=== PATIENT | female | born 1985 | race African-American/Black ===

== ENCOUNTER 2018-02-25 06:43 | Outpatient (CLI) | payer OTHER | END 2018-02-25 06:44 | disposition home or self-care (01) | LOC: BICULT 06:43 | PROVIDERS: ATTEND Family Medicine | DX: Z34.80 Encounter for supervision of other normal pregnancy, unspecified trimester (principal) | CPT/HCPCS: 76805 ==

== ENCOUNTER 2018-03-05 11:06 | Day surgery (SDC) | payer OTHER ==
[2018-03-05 11:52] VITALS: BMI 29.1
[2018-03-05] MEDS ORDERED: Acetaminophen 500 MG TAB PO SCH (12:45)
[2018-03-05 13:01] LABS: Bilirubin Negative (Negative); Blood, Urine Negative (Negative); Clarity CLEAR (Clear); Glucose, Urine (Dipstick) Negative (Negative); Leukocyte Negative (Negative); Nitrite Negative (Negative); Protein, Urine (Dipstick) Negative (Neg-Trace); Specific Gravity, Urine 1.013 (1.002-1.036)
[2018-03-05 13:03] LABS: Bacteria/HPF None Seen HPF (None Seen); Hyaline Casts/LPF 0-3 HYALINE CAST LPF (0-3 Hyaline); Pathc Cast-AUWi Flag 0.29 (0-2.49); RBC/HPF 0-3 HPF (0-3); WBC/HPF 0-3 HPF (0-3)
--- NOTE | 2018-03-05 16:49 | PRG ---
DATE OF SERVICE: 03/05/2018 PRIMARY OB: Dr. Abi Pack. CHIEF COMPLAINT: Pelvic pain. HISTORY OF PRESENT ILLNESS: The patient is a 33-year-old G7, P6 female with a history of 6 d eliveries as early as 31 weeks gestation, who is presenting to Labor and Delivery at 20 weeks gestati on with sharp pelvic pains that she feels bilaterally and beneath her umbilicus into her groin and he r vaginal area. The patient also says she feels pressure in her rectum. She reports that this pain has been worsening since several weeks ago when her boy had blood in her belly, but has become more i ntense in the last few days. The patient denies labor. She denies vaginal bleeding, leakage of flui d. She denies urinary urgency or frequency. She denies any falls or trauma. She denies any illness , chest pain, shortness of breath. She does report she has a mild headache. She denies nausea, vomi ting, denies diarrhea, constipation. She denies any new rashes. She reports she is having some pain down in her lower back near her tailbone. PAST MEDICAL HISTORY: The patient does have a history of seizures, but has been seizure free for 3 y ears and is off medication. PAST SURGICAL HISTORY: Negative. OBSTETRIC HISTORY: She has had 6 deliveries. SOCIAL HISTORY: Denies drug, alcohol or tobacco use. MEDICATIONS: vitamins. OB LABS: Unavailable. REVIEW OF SYSTEMS: Per HPI. PHYSICAL EXAMINATION: VITAL SIGNS: Blood pressure is 108/62, heart rate of 72, respiratory rate of 20, satting 99% on room air, temperature 99.2. GENERAL: The patient does appear to be uncomfortable. She is alert and oriented, cooperative and pl easant to interact with. HEENT: Normocephalic, atraumatic. LUNGS: Clear to auscultation bilaterally. HEART: Regular rate and rhythm. ABDOMEN: Gravid and soft. She does have tenderness with deviation of the uterus down in her groin r egion in her lower pelvis. EXTREMITIES: Nontender, nonedematous. PELVIC: Vulva is without masses, lesions or erythema. Vagina is moist. Cervix is visibly closed an d there does not appear to be any unusual discharge. On bimanual exam, cervix is closed. LABORATORY AND IMAGING: A bedside ultrasound performed showed a cervical length of 2.8, 2.7 and 2.5 cm. There is no funnelin g; however, there does potentially be some. Urinalysis was performed showing negative, protein negat michael, ketone negative nitrites, negative leukocyte esterase, negative red blood cells, negative white blood cells, negative bacteria. heart tracing showed heart tones in the 150s. Tocometer did not show any contractions. ASSESSMENT AND PLAN: The patient is a 33-year-old female with an intrauterine at 20 weeks who is experiencing musculoskeletal pain consistent with ligament pain in . The patient has no evidence of labor with a closed cervix. Cervical length within normal limits and physical findin gs consistent with ligament pain. Patient was given 1 gram of Tylenol here in the hospital. As the patient is driving herself home, has not been given anything stronger. The patient has been counsele d to take 2 Tylenol 3 times a day for the next several days. I have also counseled a warm bath, swim qasim pool or more moist heat to impacted areas may be beneficial for her. Of note, the patient has h ad some complications with initiating progesterone injections as indicated with her history. Dr. Nemo Pack and her staff are working to remedy the blockades or the obstacles and initiating this treat ment. If treatment does not appear to be available in the coming days to weeks, an alternate form of progesterone supplementation may be beneficial.
== END 2018-03-05 13:48 | disposition home or self-care (01) ==
LOC: L&D/OP 11:06
PROVIDERS: ATTEND Family Medicine
DX: O99.89 Other specified diseases and conditions complicating pregnancy, childbirth and the puerperium (principal); M79.1 Myalgia; Z79.899 Other long term (current) drug therapy; Z3A.20 20 weeks gestation of pregnancy
CPT/HCPCS: 76815; 81001; 99285

== ENCOUNTER 2018-04-02 22:02 | Day surgery (SDC) | payer OTHER ==
[2018-04-02 22:36] VITALS: BMI 28.5
[2018-04-02 22:37] VITALS: BP 112/67; TEMP 98.5
[2018-04-02] MEDS ORDERED: Ondansetron HCl/PF 4 MG/2 ML Vial IVP PRN (23:07)
[2018-04-02] MEDS ORDERED: Ondansetron HCl/PF 4 MG/2 ML Vial IVP SCH (23:15)
[2018-04-02] MEDS ORDERED: Promethazine HCl 25 MG/ML VIAL IM PRN (23:20)
[2018-04-02] MEDS: Lactated Ringer's 2,000 ML IV SCH (23:54)
[2018-04-03 00:11] LABS: Anion Gap 14 mmol/L (10-20); BUN (Urea Nitrogen) 7 mg/dL (7.0-18.7); Calc. Creatinine Clearance 147 mL/min (70-130); Calcium 8.8 mg/dL (7.8-10.44); Carbon Dioxide 17 mmol/L (22-29); Chloride 107 mmol/L (98-107); Estimated GFR-MDRD Greater than 90; Glucose 88 mg/dL (70-105); Potassium 4.1 mmol/L (3.5-5.1); Sodium 134 mmol/L (136-145)
[2018-04-03] MEDS: Lactated Ringer's 2,000 ML IV SCH (01:10)
[2018-04-03] MEDS: Lactated Ringer's 1,000 ML IV SCH ×2 (02:57→06:07)
[2018-04-03] MEDS ORDERED: Acetaminophen 500 MG TAB PO SCH ×2 (03:00→08:45)
--- NOTE | 2018-04-03 08:06 | PRG ---
DATE OF SERVICE: 04/02/2018 PRIMARY X RAY EQUIPMENT TESTER: Dr. Abi Pack CHIEF COMPLAINT: Nausea, vomiting. HISTORY OF PRESENT ILLNESS: The patient is a 33-year-old female with a history of 6 de liveries and an intrauterine at 24 weeks and 5 days who presents to Labor and Delivery with onset of nausea and vomiting yesterday and diarrhea. The patient reports that she has been unable t o keep anything down. Her last episode of diarrhea was 3:00 o'clock in the afternoon. The patient h as attempted to use Zofran and Diclegis at home without help. The patient cannot remember the last t liborio she urinated. The patient denies any sick contacts. She does report a history of nausea and vom iting at home, but that had been under control for a while. She denies uterine contractions, vaginal bleeding, leakage of fluid, headache, chest pain, shortness of breath, any new rashes. PAST MEDICAL HISTORY: History of seizures, but has been seizure free for 3 years now. PAST SURGICAL HISTORY: Negative. OBSTETRIC HISTORY: She has had 6 deliveries. SOCIAL HISTORY: Denies drug, alcohol or tobacco use. CURRENT MEDICATIONS: vitamins. OB LABS: Blood type is B positive, drug screen is negative. RPR is nonreactive in the first trimest er. GC chlamydia is negative in the first trimester. Hepatitis B surface antigen is negative or non reactive in the first trimester, HIV is nonreactive in the first trimester. She is rubella immune. REVIEW OF SYSTEMS: Per HPI. PHYSICAL EXAMINATION: VITAL SIGNS: Blood pressure 112/67, heart rate of 100-128, satting 97% on room air, temperature 98.5 . GENERAL: She appears to be somewhat lethargic, not feeling well. She did vomit prior to evaluation up on the floor. She is alert and oriented, cooperative and pleasant to interact with. HEENT: Normocephalic, atraumatic. LUNGS: Clear to auscultation bilaterally. HEART: Regular rate and rhythm. ABDOMEN: Gravid and soft. EXTREMITIES: Nontender, nonedematous. GENITOURINARY: exam has been deferred. heart tracing baseline noted to be in the 160s. LABORATORY: BMP: Sodium is 134, potassium 4.1, chloride 107, BUN 7, creatinine 0.79, glucose 88, ca lcium 8.8. The patient has been given a total of 3-1/2 liters of IV fluids up to now. She has not had the urge to urinate as of yet. She has not vomited any longer since presentation to the hospital and given I V Zofran. PLAN: We will attempt to feed her breakfast this morning. When she is able to keep food down and ur inate the patient will be discharged to home. She will be given instructions to follow up with her [facility] in the next 1-2 days.
--- NOTE | 2018-04-03 10:43 | PDOC.EVN ---
Event Note - Event Note Event Note: DISCHARGE NOTE FROM L&D L&D Triage Discharge note Discharge date: 04/03/18 This patient was cleared for discharge earlier this AM (0800) by Dr Drummond who evaluated her this AM. I reviewed her history and eval this triage observation: The patient is a 33 yo Multiparous woman at 24 weeks with possible gastroenteritis. The team was awaiting spontaneous void prior to discharge as a sign of volume repletion. There was no evidence of PTL. Patient has voided and discharge was placed as an order per first MD recommendation. She will follow up with her MD which is Dr Abi Azul. Symptomatically, better. DX: 1. Multiparous patient 2. Nausea and vomiting in 3. 24 week gestation
== END 2018-04-03 10:30 | disposition home or self-care (01) ==
LOC: L&D/OP 22:02
PROVIDERS: ATTEND Family Medicine
DX: O99.89 Other specified diseases and conditions complicating pregnancy, childbirth and the puerperium (principal); R11.2 Nausea with vomiting, unspecified; R19.7 Diarrhea, unspecified; Z3A.24 24 weeks gestation of pregnancy; Z64.1 Problems related to multiparity
CPT/HCPCS: 80048; 93005; 96360; 96361; 96374; 96375; 99283; J2405

== ENCOUNTER 2018-04-24 13:52 | Outpatient (CLI) | payer OTHER ==
--- NOTE | 2018-04-24 14:59 | ULT ---
LIMITED OBSTETRICAL ULTRASOUND: Date: 04-24-18 Comparison: 02-25-18 History: 33-year-old female with vaginal spotting throughout . Study is requested t o evaluate the cervical length. Technique: Limited sonographic evaluation of the uterus/cervix provided. FINDINGS: The fetus is not assessed adequately on this examination. A sagittal image of the placenta demonstrat es no evidence for previa. The placenta is located anteriorly. The cervix measures approximately 3 - 3.1 cm in length and appears closed. IMPRESSION: Cervical length is 3 - 3.1 cm. The fetus is not assessed on this examination. POS: [facility]
== END 2018-04-24 13:53 | disposition home or self-care (01) ==
LOC: SCSULT 13:52
PROVIDERS: ATTEND Family Medicine
DX: N92.0 Excessive and frequent menstruation with regular cycle (principal); Z87.51 Personal history of pre-term labor
CPT/HCPCS: 76815

== ENCOUNTER 2018-07-04 02:48 | Day surgery (SDC) | payer OTHER ==
[2018-07-04 03:21] VITALS: BMI 29.8
[2018-07-04] MEDS ORDERED: Ondansetron ODT 8 MG TAB PO SCH (05:00)
[2018-07-04 05:14] LABS: Amphetamine Not Detected (NotDetected); Barbiturates Screen Not Detected (NotDetected); Benzodiazepine Screen Not Detected (NotDetected); Cocaine Metabolite Screen Not Detected (NotDetected); Medtox Control Line Valid? VALID (VALID); Medtox Reader # READER 1; Methadone Not Detected (NotDetected); Methamphetamine Not Detected (NotDetected); Opiate Screen Not Detected (NotDetected); Oxycodone Screen Not Detected (NotDetected); Phencyclidine (PCP) Not Detected (NotDetected); THC/Cannabinoid Screen Not Detected (NotDetected); Tricyclic Screen Not Detected (NotDetected)
[2018-07-04] MEDS ORDERED: Betamet Acet/Betamet Na Ph 30 MG/5 ML VIAL IM SCH (08:00)
[2018-07-04] MEDS ORDERED: Betamet Acet/Betamet Na Ph 30 MG/5 ML VIAL ONE (08:01)
--- NOTE | 2018-07-04 08:13 | HP ---
HISTORY OF PRESENT ILLNESS: The patient is a 33-year-old G8, P6 female with an intrauterine pregnanc y at 36 weeks and 3 days who has presented to Labor and Delivery with uterine contractions that began about 1:00 this morning. The patient reports that she feels about every 5-6 minutes and are painful . The patient denies fall, fever, illness, intercourse, leakage of fluid, vaginal bleeding, fever, h eadache, chest pain, shortness of breath. The patient has had nausea. Denies vomiting, denies rash. PAST MEDICAL HISTORY: History of seizures, but has been seizure free for 3 years. PAST SURGICAL HISTORY: Negative. OBSTETRIC HISTORY: Has had 6 deliveries. SOCIAL HISTORY: Denies drug, alcohol or tobacco use. CURRENT MEDICATIONS: vitamins. OB LABORATORY DATA: Blood type is B positive. Drug screen is negative. RPR is nonreactive in the f irst trimester. GC and chlamydia are negative in the first trimester. Hepatitis B surface antigen a re nonreactive in the first trimester. HIV is nonreactive in the first trimester and she is rubella immune. REVIEW OF SYSTEMS: Per HPI. PHYSICAL EXAMINATION: VITAL SIGNS: Blood pressure 102/57, heart rate of 83, respiratory rate of 16, temperature 98.4. GENERAL: She appears to be uncomfortable with the contractions. She is alert and oriented, cooperat michael and pleasant to interact with. HEENT: Head is normocephalic, atraumatic. LUNGS: Clear to auscultation bilaterally. HEART: Has a regular rate and rhythm. ABDOMEN: Gravid and nontender in between contractions. EXTREMITIES: Nontender, nonedematous. CERVICAL EXAM: 3, 50 and -2 station. Repeat exam at 1-1/2 hours and 4 hours later is unchanged at 3 , 50, -2 station. heart tracing performed for abdominal pain in . Baseline is noted to be in the 140s w ith moderate long-term variability, positive accelerations, no decelerations. Tocometer showing cont ractions irregular at every 2-8 minutes. Drug screen is negative. ASSESSMENT AND PLAN: The patient is a 33-year-old grand multiparous patient with an intrauterine pre gnancy at 36 weeks and 3 days with a history of delivery. The patient has had ample time to declare herself in active labor, but has not done so. She remains at 3, 50 and -2 station [facility] The patient does report that her contractions have improved some, though they are still present. Fetus has a category 1 tracing and a reactive NST. The patient will be discharged ho me and given her history of delivery and current contractions and cervical status, I did conf irm the patient she has not received steroids. Patient will be given a dose of betamethasone today a nd has been asked to follow up with her primary OB, Dr. Abi Pack today.
== END 2018-07-04 08:20 | disposition home health service (06) ==
LOC: L&D/OP 02:48
PROVIDERS: ATTEND Obstetrics & Gynecology
DX: O47.03 False labor before 37 completed weeks of gestation, third trimester (principal); Z87.51 Personal history of pre-term labor; Z3A.36 36 weeks gestation of pregnancy; Z79.899 Other long term (current) drug therapy; Z88.8 Allergy status to other drugs, medicaments and biological substances
CPT/HCPCS: 80306; 90471; 90686; 96372; 99285; G0008; J0702

== ENCOUNTER 2018-07-05 08:39 | Day surgery (SDC) | payer OTHER ==
[2018-07-05 09:12] LABS: Amnisure Test No Membranes Rupture (No Rupture)
[2018-07-05 09:13] LABS: Amnisure Internal Control QC ACCEPTABLE (ACCEPTABLE)
--- NOTE | 2018-07-05 09:28 | PDOC.LDHP ---
Labor and Delivery H&P Chief complaint: contractions HPI: 33 y/o at 36w4d, patient of Dr. Abi Pack, presented initially for second dose of celestone but was complaining of contractions. Ctx are intermittent, not severe. Denies VB or decreased FM. ?LOF. ROS neg for HEENT, cv, pulm, gi, gu, neuro, psych, skin, musculoskeletal, or constitutional symptoms other than mentioned above. OB History Details: 6 prior deliveries -latest was 36 weeks. Has received 17-OH Progesterone this . Current complications: other (hx PTL) Past Medical History: Seizures (no seizures in years) Current medications: pre-juan jose vitamins Previous surgical history: none Allergies/Adverse Reactions: Allergies Allergy/AdvReac Type Severity Reaction Status Date / Time phenytoin [From Dilantin] Allergy Intermediate Rash Verified 02/12/17 21:30 Social history: none - Physical Exam Vital signs reviewed and normal: yes General: NAD, resting Lungs: nonlabored breathing Abdomen: gravid Extremeties: no edema FHT: category 1 (130s, mod variability, + accels, no decels) [place] contractions every: irregular - Vaginal Exam cm dilated: 2 (unchanged after 1 hour) Effacement: 75% Station: -2 - OB Labs Additional Labs: Amnisure negative - Assessment 33 y/o at 36w4d with no e/o PTL. status reassuring with reactive NST. Received second dose of celestone today. - Plan -: D/c home with precautions. Advised to keep follow up appointments with Dr. Pack as scheduled.
[2018-07-05 09:30] VITALS: BP 110/67; TEMP 98.9
[2018-07-05] MEDS ORDERED: Betamet Acet/Betamet Na Ph 30 MG/5 ML VIAL IM SCH (09:30)
[2018-07-05 09:31] VITALS: BMI 29.8
== END 2018-07-05 10:45 | disposition home or self-care (01) ==
LOC: L&D/OP 08:39
PROVIDERS: ATTEND Family Medicine
DX: O47.03 False labor before 37 completed weeks of gestation, third trimester (principal); Z88.8 Allergy status to other drugs, medicaments and biological substances; Z3A.36 36 weeks gestation of pregnancy
CPT/HCPCS: 84112; J0702

== ENCOUNTER 2018-07-17 08:11 | Inpatient (IN) | payer OTHER ==
[2018-07-17 09:12] VITALS: BMI 32.1
[2018-07-17 09:53] LABS: Amnisure Test No Membranes Rupture (No Rupture)
[2018-07-17 09:54] LABS: Amnisure Internal Control QC ACCEPTABLE (ACCEPTABLE)
[2018-07-17] MEDS ORDERED: Promethazine HCl 25 MG/ML VIAL IM PRN (11:17)
[2018-07-17] MEDS ORDERED: Acetaminophen/Codeine 30-300mg Tablet PO PRN (11:17)
[2018-07-17] MEDS ORDERED: Lidocaine 1% (PF) 30 ML VIAL SC PRN (11:17)
[2018-07-17] MEDS ORDERED: Ibuprofen 800 MG TAB PO PRN (11:17)
[2018-07-17] MEDS ORDERED: Butorphanol Tartrate 1 MG/ML VIAL SLOW IVP PRN (11:17)
[2018-07-17] MEDS ORDERED: Ondansetron PF 4 MG/2 ML Vial IVP PRN ×2 (11:17→21:34)
[2018-07-17] MEDS ORDERED: NS w/ Oxytocin 10 units 500 ML IV SCH ×2 (11:17)
[2018-07-17] MEDS ORDERED: Acetaminophen 500 MG TAB PO PRN (11:17)
[2018-07-17] MEDS ORDERED: Misoprostol 200 MCG TAB PR PRN (11:17)
[2018-07-17] MEDS ORDERED: HYDROcodone/Acetaminophen 5/325 mg Tablet PO PRN (11:17)
[2018-07-17] MEDS ORDERED: NS / Oxytocin 40 units/1000ml 1,000 ML IV PRN (11:17)
[2018-07-17 12:02] LABS: Hemoglobin 10.4 g/dL (12.0-16.0); Mean Corpuscular Hemoglobin 28.5 pg (27.0-31.0); Mean Corpuscular Volume 86.2 fL (78.0-98.0); Mean Platelet Volume 7.2 fL (7.4-10.4); Platelet Count 343 thou/uL (130-400); RBC Distribution Width 12.7 % (11.5-14.5); Red Blood Cell (RBC) Count 3.64 mill/uL (4.20-5.40)
[2018-07-17 12:28] LABS: HBSAg Index 0.27 S/CO (0-0.99); Hep B Surf Ag Non-Reactive S/CO (NonReactive); Syphilis Antibody Nonreactive (Nonreactive); Syphilis Antibody Index 0.04 S/CO (<1.00 Non-Reactive)
[2018-07-17 14:30] LABS: Amphetamine Not Detected (NotDetected); Barbiturates Screen Not Detected (NotDetected); Benzodiazepine Screen Not Detected (NotDetected); Cocaine Metabolite Screen Not Detected (NotDetected); Medtox Control Line Valid? VALID (VALID); Medtox Reader # READER 4; Methadone Not Detected (NotDetected); Methamphetamine Not Detected (NotDetected); Opiate Screen Not Detected (NotDetected); Oxycodone Screen Not Detected (NotDetected); Phencyclidine (PCP) Not Detected (NotDetected); THC/Cannabinoid Screen Not Detected (NotDetected); Tricyclic Screen Not Detected (NotDetected)
[2018-07-17] MEDS ORDERED: Lidocaine 1% (PF) 30 ML VIAL ONE (19:57)
[2018-07-17] MEDS ORDERED: NS / Oxytocin 40 units/1000ml 1,000 ML ONE (19:57)
[2018-07-17] MEDS ORDERED: Milk Of Magnesia 30 ML UDCUP PO PRN (21:34)
[2018-07-17] MEDS ORDERED: Lanolin Ointment 7 GM TUBE TOP PRN (21:34)
[2018-07-17] MEDS ORDERED: Benzocaine/Menthol 20-0.5% 60 ML CAN TOP PRN (21:34)
[2018-07-17] MEDS ORDERED: NS / Oxytocin 40 units/1000ml 1,000 ML IV SCH (21:34)
[2018-07-17] MEDS ORDERED: Preparation H Ointment 28 GM TUBE PR PRN (21:34)
[2018-07-17] MEDS ORDERED: Bisacodyl 10 MG SUPP PR PRN (21:34)
[2018-07-17] MEDS ORDERED: traMADol HCl 50 MG TAB PO PRN (21:34)
[2018-07-17] MEDS ORDERED: diphenhydrAMINE 25 MG CAP PO PRN (21:34)
[2018-07-17] MEDS ORDERED: Docusate Calcium (SURFAK) 240 MG CAP PO SCH (21:45)
[2018-07-17] MEDS: Ibuprofen 800 MG TAB PO SCH (21:57)
[2018-07-17 22:11] LABS: Hemoglobin 10.2 g/dL (12.0-16.0)
[2018-07-18] MEDS: HYDROcodone/Acetaminophen 5/325 mg Tablet PO PRN ×4 (01:04→14:49)
[2018-07-18] MEDS: Ibuprofen 800 MG TAB PO SCH ×3 (05:03→21:33)
[2018-07-18] MEDS: Prenatal Vitamin 1 TAB PO SCH (08:07)
[2018-07-18] MEDS: Docusate Calcium (SURFAK) 240 MG CAP PO SCH ×2 (08:07→21:33)
[2018-07-18] MEDS: Ferrous Sulfate 325 MG TAB PO SCH ×2 (08:08→18:52)
[2018-07-18] MEDS: Acetaminophen/Codeine 30-300mg Tablet PO PRN (20:11)
[2018-07-19] MEDS: Acetaminophen/Codeine 30-300mg Tablet PO PRN ×2 (03:43→12:25)
[2018-07-19] MEDS: Ibuprofen 800 MG TAB PO SCH (05:50)
[2018-07-19 09:04] VITALS: BP 118/71; TEMP 98.1
[2018-07-19] MEDS: Ferrous Sulfate 325 MG TAB PO SCH (09:37)
[2018-07-19] MEDS: Docusate Calcium (SURFAK) 240 MG CAP PO SCH (09:37)
[2018-07-19] MEDS: Prenatal Vitamin 1 TAB PO SCH (09:37)
== END 2018-07-19 14:00 | disposition home or self-care (01) | DRG 807 ==
LOC: L&D/OP 08:11 → L&D 11:17 → 3SW 07-18 00:02
PROVIDERS: ADMIT Family Medicine; ATTEND Family Medicine
PROC: 10E0XZZ Delivery of Products of Conception, External Approach (ICD-10-PCS; principal; 2018-07-17)
PROC: 10907ZC Drainage of Amniotic Fluid, Therapeutic from Products of Conception, Via Natural or Artificial Opening (ICD-10-PCS; 2018-07-17)
DX: O99.324 Drug use complicating childbirth (principal); Z37.0 Single live birth; F12.90 Cannabis use, unspecified, uncomplicated; D57.3 Sickle-cell trait; O99.02 Anemia complicating childbirth; Z86.718 Personal history of other venous thrombosis and embolism; Z86.711 Personal history of pulmonary embolism; Z79.899 Other long term (current) drug therapy; Z88.8 Allergy status to other drugs, medicaments and biological substances; Z87.51 Personal history of pre-term labor; Z3A.38 38 weeks gestation of pregnancy
CPT/HCPCS: 36415; 80306; 84112; 85027; 86780; 86850; 86900; 86901; 87340; J0595; J2001

== ENCOUNTER 2018-12-08 03:22 | Emergency (ER) | payer OTHER ==
[2018-12-08] MEDS ORDERED: HYDROcodone/Acetaminophen 10/325 mg Tablet ONE (04:47)
[2018-12-08] MEDS ORDERED: Ketorolac Tromethamine 30 MG/ML VIAL ONE (04:47)
[2018-12-08] MEDS ORDERED: Lidocaine 4% Cream 5 GM TUBE w/ Tegaderm ONE (04:49)
--- NOTE | 2018-12-08 13:37 | ULT ---
PRELIMINARY REPORT/[facility]/EMERGENTY AFTER-HOURS PROCEDURE EXAM: US Left Breast Limited EXAM DATE/TIME: 12/08/2018 5:12 AM CLINICAL HISTORY: 33 years old, female; Pain; Breast pain; Left; Patient HX: Pain at nipple, breast feeding x 5mo, eval for fluid collection TECHNIQUE: Imaging protocol: Limited ultrasound of Left breast with image documentation, including axilla when p erformed. COMPARISON: No relevant prior studies available. FINDINGS: US breast: Focal evaluation around the left breast nipple for pain including 12 images. Normal appear ance of lactating breast. No abnormal fluid collection. IMPRESSION: No evidence of an abscess around the left breast nipple. ASSESSMENT: BI-RADS 1, Negative. Thank you for allowing us to participate in the care of your patient. Dictated and Authenticated by: Nemo Kern MD 12/08/2018 6:34 AM Central Time ([place] & [place]) FINAL REPORT EMERGENT AFTER HOURS LEFT BREAST ULTRASOUND: IMPRESSION: I agree with the preliminary interpretation given by [facility]. No sonographic evidence for focal fluid collection to suggest abscess. POS: [facility]
== END 2018-12-08 06:45 | disposition home or self-care (01) ==
LOC: ERS 03:22
DX: N61.0 Mastitis without abscess (principal); F41.9 Anxiety disorder, unspecified; F32.9 Major depressive disorder, single episode, unspecified; F43.10 Post-traumatic stress disorder, unspecified; Z87.891 Personal history of nicotine dependence
CPT/HCPCS: 96372; J1885

== ENCOUNTER 2020-06-27 03:00 | Emergency (ER) | payer OTHER, SELFPAY ==
[2020-06-27] MEDS ORDERED: Ketorolac Tromethamine 30 MG/ML VIAL ONE (03:24)
[2020-06-27] MEDS ORDERED: Ondansetron PF 4 MG/2 ML Vial ONE (03:24)
[2020-06-27] MEDS ORDERED: Glycopyrrolate 0.2 MG/ML 5 ML SYRINGE SLOW IVP SCH (03:30)
[2020-06-27] MEDS ORDERED: Haloperidol Lactate 5 MG/ML VIAL ONE (03:34)
[2020-06-27 03:52] LABS: #Basophils 0.1 thou/uL (0.0-0.2); #Lymphocytes 1.3 thou/uL (1.20-3.40); #Monocytes 0.1 thou/uL (0.11-0.59); #Neutrophils 9.7 thou/uL (1.40-6.50); %Basophils 0.7 % (0.0-1.0); %Eosinophils 0.2 % (0.0-10.0); %Lymphocytes 11.4 % (21.0-51.0); %Monocytes 0.8 % (0.0-10.0); %Neutrophils 86.9 % (42.0-75.0); Hemoglobin 14.7 g/dL (12.0-16.0); Mean Corpuscular HGB CONC 34.1 g/dL (32.0-36.0); Mean Corpuscular Hemoglobin 29.2 pg (27.0-31.0); Mean Corpuscular Volume 85.5 fL (78.0-98.0); Mean Platelet Volume 7.2 fL (7.4-10.4); Platelet Count 373 thou/uL (130-400); RBC Distribution Width 12.5 % (11.5-14.5); Red Blood Cell (RBC) Count 5.05 mill/uL (4.20-5.40); White Blood Cell (WBC) Count 11.2 thou/uL (4.8-10.8)
[2020-06-27 04:22] LABS: Pregnancy Test - Urine (BHCG) Negative (Negative); Pregu Control Background? CLEAR/WHITE (CLR/WHITE); Pregu Control Bar Appear? YES (CONTROL BAR); Specific Gravity 1.011 (1.002-1.036)
[2020-06-27 04:42] LABS: Bacteria/HPF 1+ HPF (None Seen); Bilirubin Negative (Negative); Blood, Urine 1+ (Negative); Clarity Turbid (Clear); Glucose, Urine (Dipstick) Normal (Negative); Ketone, Urine Negative (Negative); Leukocyte 500 Leu/uL (Negative); Nitrite Negative (Negative); Protein, Urine (Dipstick) 30 mg/dL (Neg-Trace); RBC/HPF 21-50 HPF (0-3); Specific Gravity, Urine 1.012 (1.002-1.036); Squamous Epithelial 0-3 HPF (0-3); Urobilinogen Normal mg/dL (Less than 2); WBC/HPF Greater than 50 HPF (0-3)
[2020-06-27] MEDS ORDERED: cefTRIAXone\\ROCEPHIN 1 GM VIAL ONE (05:10)
[2020-06-27 05:26] LABS: ALT (SGPT) 8 U/L (8-55); AST (SGOT) 13 U/L (5-34); Albumin 3.6 g/dL (3.5-5.0); Alkaline Phosphatase 76 U/L (40-110); Anion Gap 13 mmol/L (10-20); BUN (Urea Nitrogen) 8 mg/dL (7.0-18.7); Bilirubin, Total 1.3 mg/dL (0.2-1.2); Calc. Creatinine Clearance 0 mL/min (70-130); Calcium 8.1 mg/dL (7.8-10.44); Carbon Dioxide 20 mmol/L (22-29); Chloride 106 mmol/L (98-107); Estimated GFR-MDRD 84; Globulin 2.9 g/dL (2.4-3.5); Glucose 97 mg/dL (70-105); Lipase 16 U/L (8-78); Potassium 3.8 mmol/L (3.5-5.1); Protein, Total 6.5 g/dL (6.0-8.3); Sodium 135 mmol/L (136-145)
--- NOTE | 2020-06-27 09:00 | RAD ---
RADIOGRAPH CHEST 1 VIEW: Supine DATE: 06/27/2020 HISTORY: 35-year-old female with cough FINDINGS: There is no airspace density or pulmonary edema. The lateral costophrenic angles are sharp. Supine po sitioning makes this study insensitive for the detection of pneumothorax. No cardiomegaly. IMPRESSION: No acute pulmonary findings.
--- NOTE | 2020-06-27 09:09 | CT ---
PRELIMINARY REPORT/[facility]/AFTER HOURS PROCEDURE CT ABDOMINAL AND PELVIS WITH INTRAVENOUS CONTRAST: CLINICAL HISTORY: A 35-year-old female presents with about 12 to 24-hour history of worsening sharp right lower quadran t pain radiating to the back. Associated nausea and vomiting. TECHNIQUE: Axial computed tomography images of the abdomen and pelvis with intravenous contrast. CONTRAST: Isovue-370 100 mL. COMPARISON: None provided. FINDINGS: LUNG BASES: No basilar airspace consolidation or pleural effusion. LIVER: Unremarkable. Likely a small hemangioma measuring about 18 mm. GALLBLADDER AND BILE DUCTS: Unremarkable. No calcified stone. No ductal dilation. PANCREAS: Unremarkable. SPLEEN: Unremarkable. ADRENAL GLANDS: Unremarkable. KIDNEYS, URETERS, AND BLADDER: Unremarkable. No hydronephrosis or nephrolithiasis. No ureteral or tommy dder calculi. STOMACH AND BOWEL: No obstruction. No wall thickening. No CT evidence of colitis or acute diverticuli tis. APPENDIX: Normal appendix. PERITONEUM: Trace free fluid. No free air. LYMPH NODES: No lymphadenopathy. REPRODUCTIVE: Unremarkable as visualized. Suspect a recently ruptured follicle or cyst on the LEFT o vary. VASCULATURE: No aortic aneurysm. BONES: No fracture or suspicious osseous abnormality. ABDOMINAL WALL AND SOFT TISSUES: Unremarkable. IMPRESSION: No acute intra-abdominal or pelvic abnormality. ELECTRONICALLY SIGNED BY: Yeison Bowden MD Jun 27, 2020 4:47:12 AM CDT This report is intended for review by the ordering physician only, in accordance of law. If you recei ve this report in error, please call [facility] at [phone]. FINAL REPORT EMERGENT AFTER HOURS CT ABDOMEN WITH CONTRAST: CT PELVIS WITH CONTRAST: 06/27/20 4:35 a.m. HISTORY: A 35-year-old female with right lower quadrant abdominal pain. TECHNIQUE: IV injection of iodinated contrast media: Isovue-370 100 mL. Oral contrast media: Not administered. FINDINGS: Approximately 2 cm hemangioma at the junction between hepatic segments 8 and 4A. No other hepatic abn ormality. Normal appendix, abdominal aorta, kidneys, adrenals, pancreas and spleen. No signs of colonic diverticulitis. Small amount of free fluid in the cul-de-sac and in the left adnexa. Irregularly-shaped, rim-enhancing, 2.5 cm left adnexal structure with low attenuation center, perhaps ruptured ovarian cyst. Decompressed urinary bladder with mural thickening, nonspecific. No small bowel dilation or pneumoperitoneum. Lung bases are grossly clear. No high-grade DJD, scoliosis or compression fracture of the lumbar spine. Agree with preliminary report by [facility]. IMPRESSION: 1. Normal appendix. 2. Findings suggestive of possible ruptured left ovarian cyst. 3. Mural thickening of the urinary bladder could be due to incomplete distention or could represent a cute cystitis. 4. Incidental finding of benign hepatic hemangioma. LUCERO R CODE QA POS: [facility]
[2020-06-27] MEDS ORDERED: Iopamidol-370 76% 500 ML 1 ML ONE (13:32)
== END 2020-06-27 06:00 | disposition home or self-care (01) ==
LOC: ERS 03:00
DX: N39.0 Urinary tract infection, site not specified (principal); N83.202 Unspecified ovarian cyst, left side; F41.9 Anxiety disorder, unspecified; F32.9 Major depressive disorder, single episode, unspecified; F43.10 Post-traumatic stress disorder, unspecified; F17.210 Nicotine dependence, cigarettes, uncomplicated
CPT/HCPCS: 36415; 71045; 74177; 80053; 81003; 81015; 81025; 83690; 84702; 85025; 87077; 87086; 87186; 96374; 96375; J0696; J1630; J1885; J2405; Q9967

== ENCOUNTER 2022-08-15 07:55 | Emergency (ER) | payer OTHER, SELFPAY ==
[2022-08-15] MEDS ORDERED: Ketorolac Tromethamine 30 MG/ML VIAL ONE (08:55)
[2022-08-15] MEDS ORDERED: Morphine 4 MG/ML VIAL ONE (09:45)
[2022-08-15] MEDS ORDERED: HYDROcodone/Acetaminophen 5/325 mg Tablet ONE (10:47)
== END 2022-08-15 10:51 | disposition home or self-care (01) ==
LOC: ERS 07:55
DX: M54.50 Low back pain, unspecified (principal); M54.2 Cervicalgia; Z87.891 Personal history of nicotine dependence
CPT/HCPCS: 96372; 99283; J1885; J2270

== ENCOUNTER 2023-07-18 11:31 | Outpatient (CLI) | payer OTHER | END 2023-07-18 11:32 | disposition home or self-care (01) | LOC: BICULT 11:31 | PROVIDERS: ATTEND Family Medicine | DX: O09.522 Supervision of elderly multigravida, second trimester (principal); Z3A.23 23 weeks gestation of pregnancy | CPT/HCPCS: 76805 ==

== ENCOUNTER 2023-08-31 19:13 | Emergency (ER) | payer OTHER ==
[2023-08-31] MEDS ORDERED: Cephalexin 250 MG CAP ONE (20:02)
== END 2023-08-31 20:10 | disposition home or self-care (01) ==
LOC: ERS 19:13
DX: O99.513 Diseases of the respiratory system complicating pregnancy, third trimester (principal); J02.0 Streptococcal pharyngitis; Z3A.29 29 weeks gestation of pregnancy; Z87.891 Personal history of nicotine dependence
CPT/HCPCS: 99283